=== PATIENT | female | born 1995 | race Caucasian/White ===

== ENCOUNTER → 2019-05-25 14:05 | Outpatient (CLI) | payer SELFPAY ==
[2019-05-05 09:17] VITALS: BMI 32.7
--- NOTE | 2019-05-25 14:08 | US_ITS ---
STUDY: SECOND AND THIRD TRIMESTER OBSTETRICAL ULTRASOUND REASON FOR EXAM: Female, 23 years old . dating. LMP: February 11, 2019 TECHNIQUE: Transabdominal and Transvaginal TECHNICAL QUALITY: Adequate. PRIOR ULTRASOUND: None. FINDINGS: There is a single intrauterine fetus. The fetus is in an transverse lie with the head on the maternal left side. There is demonstrated cardiac activity with a heart rate of 152 bpm. There is a normal amniotic fluid volume. The largest amniotic fluid pocket measures 4.8 cm x 3.1 cm. The amniotic fluid index (VALE) is normal. The placenta is anterior and low lying but not previa in location. The tip of the placenta is at 0.5 cm from the internal os. There are Grade 0 placental changes. The cervix measures 3.9 cm in length. The bilateral adnexal regions are normal. BIOMETRY: BPD: 2.7 cm: 14 weeks, 6 days HC: 10.5 cm: 50 weeks, 0 days AC: 8.4 cm: 14 weeks, 5 days FL: 1.4 cm: 14 weeks, 2 days CI: 78% FL/BPD: 53% FL/HC: FL/AC: 17% HC/AC: 1.25 age by current US: 14 weeks, 5 days. TOMÁS by current US: December 15, 2019. Estimated weight: 100 grams, +/- 15 grams, 24 %. Age by LMP: 14 weeks, 5 days. TOMÁS by LMP: November 18, 2019. US/OB Limited With Biometrics IMPRESSION: Single live intrauterine gestation with a mean gestational age of 14 weeks and 5 days. Low-lying anterior placenta. The tip of the placenta is at 0.5 cm from the internal os. Electronically Signed: Sekou Iqbal, at 12:51 EST , Service support ,
== END ==
PROVIDERS: Referring Provider Obstetrics & Gynecology; Visit Provider Obstetrics & Gynecology
DX: Z34.80 Encounter for supervision of other normal pregnancy, unspecified trimester (principal)
CPT/HCPCS: 76816; 76817; 87086

== ENCOUNTER → 2019-06-25 12:19 | Outpatient (CLI) | payer SELFPAY ==
[2019-05-25 15:49] VITALS: BMI 32.7
[2019-06-25 13:49] LABS: Absolute Lymphocyte Count 1.74 X10^3/uL (0.83-4.51); Absolute Neutrophil Count 5.3 X10^3/uL (2.0-7.7); Basophil# 0.02 X10^3/uL; Basophil% 0.3 % (0-1); Eosinophil# 0.05 X10^3/uL; Eosinophils% 0.7 % (0-5); Hematocrit 35.1 % (37-47); Hemoglobin 11.5 g/dL (12.0-15.0); Lymphocyte # 1.74 X10^3/ul (4.0); Mean Corp Hgb Conc 32.8 g/dL (32-36); Mean Corpuscular Hgb 29.9 pg (27.0-32.0); Mean Corpuscular Volume 91.4 fL (81-99); Mean Platelet Vol. 10.8 fl (6.2-12.0); Monocyte# 0.37 X10^3/uL; Monocyte% 4.9 % (0-10); NRBC Flagged by Analyzer 0 % (0-5); Neutrophil # 5.31 X10^3/uL (2.7-7.7); Neutrophil % 70.3 % (47-70); Platelet Count 216 K/mm3 (150-450); RBC Distribution Width CV 12.3 % (11.6-14.6); RBC Distribution Width SD 40.7 fl (35.1-43.9); Red Blood Count 3.84 M/mm3 (4.2-5.4); White Blood Count 7.6 K/mm3 (4.4-11.0)
[2019-06-25 14:26] LABS: Glucose Challenge Gest 1H 50g 88 mg/dL (70-140)
[2019-06-25 15:14] LABS: HIV - WCH Non-Reactive (Nonreactive); Hepatitis B Surface Antigen Non-Reactive (Nonreactive); Rubella IgG < 0.2 IU/mL
[2019-06-25 20:27] LABS: Chlamydia Trachomatis by PCR Negative (Negative); Neisserai gonorrhoeae by PCR Negative (Negative); Probe Check PASS; Sample Adequacy Control PASS; Specimen Processing Control PASS
[2019-07-02 02:55] LABS: Rapid Plasmin Reagin (RPR) NONREACTIVE (NONREACTIVE)
== END ==
PROVIDERS: Nurse Practitioner Women's Health; Referring Provider Obstetrics & Gynecology; Visit Provider Obstetrics & Gynecology
DX: Z34.80 Encounter for supervision of other normal pregnancy, unspecified trimester (principal)
CPT/HCPCS: 36415; 82950; 85025; 86592; 86703; 86762; 86850; 86900; 86901; 87340; 87491; 87591

== ENCOUNTER → 2019-07-03 11:56 | Outpatient (CLI) | payer SELFPAY ==
[2019-06-25 12:56] VITALS: BMI 32.7
--- NOTE | 2019-07-03 12:23 | US_ITS ---
STUDY: SECOND AND THIRD TRIMESTER OBSTETRICAL ULTRASOUND REASON FOR EXAM: Female, 23 years old. Anatomy screening. LMP: February 11, 2019 TECHNIQUE: Transabdominal and Transvaginal TECHNICAL QUALITY: Adequate. PRIOR ULTRASOUND: May 25, 2019. FINDINGS: There is a single intrauterine fetus. The fetus is in a transverse lie with the head on the maternal right side. There is demonstrated cardiac activity with a heart rate of 155 bpm. There is a normal amniotic fluid volume. The largest amniotic fluid pocket measures 4.34 cm. The placenta is anterior in location and is not low lying. There are Grade 0 placental changes. The cervix measures 4.4 cm in length. The adnexal regions are not visualized. BIOMETRY: BPD: 4.47 cm: 19 weeks, 3 days HC: 16.52 cm: 19 weeks, 1 days AC: 15.31 cm: 20 weeks, 3 days FL: 3.06 cm: 19 weeks, 3 days CI: 75.95 FL/BPD: 68.33 FL/HC: 18.5 FL/AC: 19.97 HC/AC: 1.08 age by current US: 19 weeks, 4 days. TOMÁS by current US: November 23, 2019. Estimated weight: 322 grams, +/- 48 grams, 21 %. age by prior US: 20 weeks, 2 days. TOMÁS by prior US: November 18, 2019. Age by LMP: 20 weeks, 2 days. TOMÁS by LMP: November 18, 2019. ANATOMY: Gender: Female Cranium: Normal lateral ventricles. Normal choroid plexus. Normal cerebellum. Normal cisterna magna. Normal face, nose and lips. Chest: Normal 4-chamber heart. Abdomen/Pelvis: Normal diaphragm. Normal stomach. Normal abdominal wall. Normal cord insertion. Normal 3 vessel cord. Normal kidneys. Normal bladder. Spine: Normal cervical spine. Normal thoracic spine. Normal lumbar spine. Normal sacrum. Extremities: Normal bilateral upper extremities. Normal bilateral lower extremities. IMPRESSION: 1. Live single intrauterine at 19 weeks, 4 days. TOMÁS is November 23, 2019. There is adequate interval growth since prior ultrasound. 2. EFW of 322 g. 3. Adequate amniotic fluid. 4. Anterior grade 0 placenta. 5. Transverse presentation with head to the maternal right. 6. No visualized anatomic abnormality. Electronically Signed: Murali Moffett DO at 18:01 EST Tel [phone], Service support , STUDY: SECOND AND THIRD TRIMESTER OBSTETRICAL ULTRASOUND REASON FOR EXAM: Female, 23 years old. Anatomy screening. LMP: February 11, 2019 TECHNIQUE: Transabdominal and Transvaginal TECHNICAL QUALITY: Adequate. PRIOR ULTRASOUND: May 25, 2019. FINDINGS: There is a single intrauterine fetus. The fetus is in a transverse lie with the head on the maternal right side. There is demonstrated cardiac activity with a heart rate of 155 bpm. There is a normal amniotic fluid volume. The largest amniotic fluid pocket measures 4.34 cm. The placenta is anterior in location and is not low lying. There are Grade 0 placental changes. The cervix measures 4.4 cm in length. The adnexal regions are not visualized. BIOMETRY: BPD: 4.47 cm: 19 weeks, 3 days HC: 16.52 cm: 19 weeks, 1 days AC: 15.31 cm: 20 weeks, 3 days FL: 3.06 cm: 19 weeks, 3 days CI: 75.95 FL/BPD: 68.33 FL/HC: 18.5 FL/AC: 19.97 HC/AC: 1.08 age by current US: 19 weeks, 4 days. TOMÁS by current US: November 23, 2019. Estimated weight: 322 grams, +/- 48 grams, 21 %. age by prior US: 20 weeks, 2 days. TOMÁS by prior US: November 18, 2019. Age by LMP: 20 weeks, 2 days. TOMÁS by LMP: November 18, 2019. ANATOMY: Gender: Female Cranium: Normal lateral ventricles. Normal choroid plexus. Normal cerebellum. Normal cisterna magna. Normal face, nose and lips. Chest: Normal 4-chamber heart. Abdomen/Pelvis: Normal diaphragm. Normal stomach. Normal abdominal wall. Normal cord insertion. Normal 3 vessel cord. Normal kidneys. Normal bladder. Spine: Normal cervical spine. Normal thoracic spine. Normal lumbar spine. Normal sacrum. Extremities: Normal bilateral upper extremities. Normal bilateral lower extremities. US/OB Anatomy Scan IMPRESSION: 1. Live single intrauterine at 19 weeks, 4 days. TOMÁS is November 23, 2019. There is adequate interval growth since prior ultrasound. 2. EFW of 322 g. 3. Adequate amniotic fluid. 4. Anterior grade 0 placenta. 5. Transverse presentation with head to the maternal right. 6. No visualized anatomic abnormality. Electronically Signed: Murali Moffett DO at 18:02 EST Tel [phone], Service support ,
== END ==
PROVIDERS: Referring Provider Obstetrics & Gynecology; Visit Provider Obstetrics & Gynecology
DX: O44.42 Low lying placenta NOS or without hemorrhage, second trimester (principal); Z3A.19 19 weeks gestation of pregnancy
CPT/HCPCS: 76805; 76817

== ENCOUNTER → 2019-09-17 09:38 | Outpatient (CLI) | payer SELFPAY ==
[2019-08-18 15:02] VITALS: BMI 32.7
[2019-09-17 10:24] LABS: Absolute Lymphocyte Count 1.45 X10^3/uL (0.83-4.51); Absolute Neutrophil Count 5.1 X10^3/uL (2.0-7.7); Basophil# 0.03 X10^3/uL; Basophil% 0.4 % (0-1); Eosinophil# 0.06 X10^3/uL; Eosinophils% 0.8 % (0-5); Hematocrit 34.5 % (37-47); Hemoglobin 11.5 g/dL (12.0-15.0); Lymphocyte # 1.45 X10^3/ul (4.0); Lymphocyte % 19.6 % (19-41); Mean Corp Hgb Conc 33.3 g/dL (32-36); Mean Corpuscular Hgb 30.6 pg (27.0-32.0); Mean Corpuscular Volume 91.8 fL (81-99); Mean Platelet Vol. 10.9 fl (6.2-12.0); Monocyte# 0.62 X10^3/uL; Monocyte% 8.4 % (0-10); NRBC Flagged by Analyzer 0 % (0-5); Platelet Count 179 K/mm3 (150-450); RBC Distribution Width CV 12.6 % (11.6-14.6); RBC Distribution Width SD 41.5 fl (35.1-43.9); Red Blood Count 3.76 M/mm3 (4.2-5.4); White Blood Count 7.4 K/mm3 (4.4-11.0)
[2019-09-17 11:00] LABS: Glucose Challenge Gest 1H 50g 78 mg/dL (70-140)
== END ==
PROVIDERS: Referring Provider Obstetrics & Gynecology; Visit Provider Obstetrics & Gynecology
DX: Z34.80 Encounter for supervision of other normal pregnancy, unspecified trimester (principal)
CPT/HCPCS: 36415; 82950; 85025

== ENCOUNTER → 2019-10-22 07:49 | Outpatient (CLI) | payer SELFPAY ==
[2019-10-15 10:12] VITALS: BMI 32.7
--- NOTE | 2019-10-22 07:50 | US_ITS ---
STUDY: SECOND AND THIRD TRIMESTER OBSTETRICAL ULTRASOUND REASON FOR EXAM: Female, 24 years old growth LMP: February 11, 2019. TECHNIQUE: Transabdominal TECHNICAL QUALITY: Adequate. PRIOR ULTRASOUND: Comparison is made with prior examination dated July 03, 2019. FINDINGS: There is a single intrauterine fetus. The fetus is in a breech presentation. There is demonstrated cardiac activity with a heart rate of 137 bpm. There is a normal amniotic fluid volume. The largest amniotic fluid pocket measures 8.4 cm. The amniotic fluid index (VALE) is 20.4 cm. The placenta is anterior in location and is not low lying. There are Grade 1 placental changes. The cervix measures 3.3 cm in length. The adnexal regions are not visualized. BIOMETRY: BPD: 9.2 cm: 37 weeks, 3 days HC: 33.4 cm: 38 weeks, 1 days AC: 35.4 cm: 39 weeks, 2 days FL: 7.1 cm: 36 weeks, 0 days CI: 82% FL/BPD: 76% FL/HC: FL/AC: 20% HC/AC: 0.94 age by current US: 37 weeks, 5 days. TOMÁS by current US: November 07, 2019. Estimated weight: 3453 grams, +/- 511 grams, 94% %. age by prior US: 36 weeks, 1 days. TOMÁS by prior US: November 18, 2019. Age by LMP: 36 weeks, 1 days. TOMÁS by LMP: November 18, 2019. US/OB Limited With Biometrics IMPRESSION: Single live intrauterine gestation with mean gestational age of 36 weeks and 1 day. The measurements obtained today fall within normal range. Electronically Signed: Sekou Iqbal, at 10:06 EDT , Service support ,
== END ==
PROVIDERS: Referring Provider Obstetrics & Gynecology; Visit Provider Obstetrics & Gynecology
DX: O26.843 Uterine size-date discrepancy, third trimester (principal); Z3A.36 36 weeks gestation of pregnancy
CPT/HCPCS: 76816; 87081

== ENCOUNTER → 2019-11-23 16:14 | Outpatient (CLI) | payer SELFPAY ==
[2019-11-19 10:05] VITALS: BMI 39.9
--- NOTE | 2019-11-23 16:14 | US_ITS ---
STUDY: SECOND AND THIRD TRIMESTER OBSTETRICAL ULTRASOUND REASON FOR EXAM: Female, 24 years old GROWTH - POST DUE DATE LMP: TECHNIQUE: Transabdominal TECHNICAL QUALITY: Adequate. PRIOR ULTRASOUND: None. FINDINGS: There is a single intrauterine fetus. The fetus is in a breech presentation. There is demonstrated cardiac activity with a heart rate of 136 bpm. There is a normal amniotic fluid volume. The largest amniotic fluid pocket measures 6.6 cm. The amniotic fluid index (VAEL) is 21 cm. The placenta is anterior There are Grade 2 placental changes.. BIOMETRY: BPD: 9.7 cm: 39 weeks, 4 days HC: 35 cm: 40 weeks, 5 days AC: 38.5 cm: weeks, days FL: 8 cm: 40 weeks, 5 days CI: 0.8 FL/BPD: 0.82 FL/HC: FL/AC: 0.21 HC/AC: 0.9 age by current US: 40 weeks, 3 days. TOMÁS by current US: November 20, 2019. Estimated weight: 4420 grams, +/- 645 grams, %. age by prior US: 42 weeks, 2 days. TOMÁS by prior US: November 07, 2019. Age by LMP: 40 weeks, 5 days. TOMÁS by LMP: November 18, 2019. ANATOMY: Not studied at this time US/OB Limited With Biometrics IMPRESSION: Viable intrauterine gestation approximately 40-41 weeks gestational age with fetus currently in breech position Electronically Signed: Gallito Lomax MD at 18:12 EDT , Service support ,
== END ==
PROVIDERS: Visit Provider Obstetrics & Gynecology
DX: O48.0 Post-term pregnancy (principal); Z3A.00 Weeks of gestation of pregnancy not specified
CPT/HCPCS: 76816

== ENCOUNTER 2019-11-25 07:54 | Inpatient (IN) | payer SELFPAY ==
[2019-05-05 09:17] VITALS: BMI 32.7
[2019-10-22 08:42] VITALS: BMI 32.7
[2019-11-05 10:10] VITALS: BMI 39.9
[2019-11-24 12:35] VITALS: BMI 39.9
[2019-11-25] VITALS (27 sets, daily range): BP systolic 95–135; BP diastolic 33–81; PULSE 78–123; RESP 16–20; TEMP 36.1–37.4; O2SAT 94–99; BMI 39.8
[2019-11-25 09:11] LABS: Absolute Lymphocyte Count 0.79 X10^3/uL (0.83-4.51); Absolute Neutrophil Count 11.8 X10^3/uL (2.0-7.7); Basophil# 0.02 X10^3/uL; Basophil% 0.1 % (0-1); Eosinophil# 0.09 X10^3/uL; Eosinophils% 0.7 % (0-5); Hemoglobin 12.3 g/dL (12.0-15.0); Lymphocyte # 0.79 X10^3/ul (4.0); Lymphocyte % 5.8 % (19-41); Mean Corp Hgb Conc 33.2 g/dL (32-36); Mean Corpuscular Hgb 30.2 pg (27.0-32.0); Mean Corpuscular Volume 90.9 fL (81-99); Mean Platelet Vol. 12.3 fl (6.2-12.0); Monocyte# 0.77 X10^3/uL; Monocyte% 5.7 % (0-10); NRBC Flagged by Analyzer 0 % (0-5); Neutrophil # 11.79 X10^3/uL (2.7-7.7); Neutrophil % 87.3 % (47-70); Platelet Count 161 K/mm3 (150-450); RBC Distribution Width SD 42.4 fl (35.1-43.9); Red Blood Count 4.07 M/mm3 (4.2-5.4); White Blood Count 13.5 K/mm3 (4.4-11.0)
--- NOTE | 2019-11-25 09:12 | PCM.HPOB.BLA ---
- Problem List (1) Active labor at term Status: Acute (2) H/O section Status: Acute Comment: x2 plan TOLAC prior to 41 weeks. 69% success. h/o AOD 3 cm. RLTCS scheduled at 41 weeks. (3) Obesity affecting Status: Acute Qualifiers: Comment: nl 1 tm glucola. encouraged healthy weight gain. (4) Post-dates Status: Acute Comment: OP Covid testing pending 11/23. plan IOL 11/26/19 if no spontaneous labor (5) Status: Acute Qualifiers: Comment: Declines genetic, carrier and NTD- normal anatomy (6) Supervision of other normal Status: Acute Comment: PRR TOMÁS 11/17/19 gender surprise PC: Patricia Knox Spouse: Patrick History and Physical Date of Admission: 11/25/19 Intake Vital Signs 11/24/19 BMI 39.9 11/24/19 Height 5 ft 2 in 11/24/19 Weight: 219 lb 11/24/19 BMI 40.0 11/24/19 BP 122/86 H Intake Visit Reasons: OB Chief Complaint: est ob 40w6d [employer] Required: No Is patient in pain?: No Allergies No Known Allergies Allergy (Verified 11/24/19 12:34) Medications vitamin no.76-iron,carbonyl 29 mg iron-folic acid 1 mg tablet 1 tab PO DAILY 05/05/19 [History Confirmed 11/24/19] Last Menstral Period: 02/11/19 Zika: Zika virus screening: Negative : No PFSH PFSH Medical History No significant past medical history (Acute) Surgical History H/O section (Acute) Social History (Updated 11/25/19 @ 07:[address] Jacqueline Amaral MD) adopted: No household members: family housing: house number of children: 2 current occupational status: other current occupation: homemaker pets and animals: No history of recent travel: No sexually active: Yes Smoking Status: Never smoker second hand exposure: No alcohol intake: never substance use type: does not use seatbelt use: always do you feel safe at home: Yes additional social history: Patrick- self employed landscaping Pregancy History 4 Elective abortions Hx Para 2 Spontaneous abortions 1 Hx # Term Pregnancies 2 Ectopic pregnancies Hx # Pregnancies Multiple births # of living children 2 Past Pregnancies Del. 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 AoD 3cm. Emergency Delivery Date: 11/05/16 On 05/05/19 @ 09:27 Christine Ramos Decreased FM HPI OB: Details: JEZ LYLE is a 24 year old @ 41 weeks presents IAL 4 cm dilated with regular contractions no significant vb or lof, good fm. OB Visit TOMÁS Calculator Estimated Delivery Date Method Current WG Current Estimate 11/18/19 LMP (Certain) 41w 0d Expected Delivery Route/Plan breech- plan RLTCS if vtx- attempt TOLAC patient counseled regarding risks/benefits of trial of labor versus repeat . ACOG and uptodate education given to patient. 69 % likelihood of success per calculator TOLAC consent form signed: yes Labor Preferences- labor support person: Patrick pain management options preferred: open to epidural but prefers minimal intervention cut cord/dad catch: cord : yes PP control planned: none discussed possible routes of delivery and associated risks: [] special requests: [] Specific Issue/Plans flu vaccine: declined tdap vaccine: declined rhogam: na LARC form signed: yes movement and labor precautions reviewed. Problem list reviewed and updated with the most current plan of care details and appropriate orders placed. Relevant counseling for the gestational age provided. Continue routine care and follow up unless otherwise noted in visit notes/problem list details Initial Weight: 179 lb Date EGA Weight BP Urine Prot Glucose FHR FuHt Pres Dilation Effaced St Visit Note 05/25/19 14w 5d 184 lb 6 oz (+5 lb 6 oz) 126/81 Negative Negative 150 no vb cramping 06/25/19 19w 1d 189 lb 8 oz (+10 lb 8 oz) 120/76 Negative Negative 158 No vB, LOF. PNL today with 1hr GCT. Anatomy US scheduled. 07/23/19 23w 1d 198 lb (+19 lb) 116/74 Negative Negative 150 SM- no vb lof good fm no regular ctx 08/18/19 26w 6d 204 lb (+25 lb) 128/82 154 27 MH-good FM. No VB, LOF. Declines tdap. Will RTO next week for 28wk labs 09/17/19 31w 1d 208 lb 8 oz (+29 lb 8 oz) 130/66 Negative Negative 145 32 SM- no vb lof good fm no regular ctx discussed reduced visit schedule due to covid 19. fu 4 weeks 10/15/19 35w 1d 216 lb (+37 lb) 120/80 Negative Negative 140 39 SM- no vb lof good fm no regular ctx. tolac consent signed 10/22/19 36w 1d 215 lb (+36 lb) 116/82 Negative Negative 140 40 Breech 0 SM- no vb lof good fm no regular ctx. discussed breech presentation. 10/29/19 37w 1d 218 lb 4 oz (+39 lb 4 oz) 130/80 Negative Negative 140 40 Cephalic SM- no vb lof good fm no regular ctx 11/05/19 38w 1d 219 lb (+40 lb) 130/86 Negative Negative 140 41 Cephalic 0 SM- no vb lof good fm no regular ctx, external os starting to open and soften but head still very high. discussed expectant management until 41 weeks. 11/12/19 39w 1d 221 lb (+42 lb) 128/78 Negative Negative 140 41 Cephalic 0.5 0 -4 SM- no vb lof good fm no regular ctx discussed scheduling 41 week delivery RLTCS if no active labor prior. questions answered. 11/19/19 40w 1d 222 lb 2 oz (+43 lb 2 oz) 122/82 Negative Negative 143 42 Cephalic MH-NO VB, LOF. Good FM. Declines internal exam. Plans CS 11/24 if no spontaneous labor. Aware covid test 03/24. 11/24/19 40w 6d 219 lb (+40 lb) 122/86 Negative Negative 130 Cephalic 3 70 -2 SM- no vb lof good fm irregular ctx. desires exp management and open to IOL at 41w1d if no spontaneous labor before then. dumont score 7 and favorable enough for induction with pitocin only. Discussed with the patient the decreased likelihood of success and due to being postdates and estimated weight is 4400 g patient wishes to proceed with trial of labor. Reactive NST and normal growth and fluid several days ago plan expectant management with induction of labor morning Notes Visit Date: 11/24/19 ??No visit notes to display Visit Date: 11/19/19 ??No visit notes to display Visit Date: 11/12/19 ??No visit notes to display Visit Date: 11/05/19 ??No visit notes to display Visit Date: 10/29/19 ??No visit notes to display Visit Date: 10/22/19 ??No visit notes to display Visit Date: 10/15/19 ??No visit notes to display Visit Date: 09/17/19 ??No visit notes to display Visit Date: 08/18/19 ??No visit notes to display Visit Date: 07/23/19 ??No visit notes to display Visit Date: 06/25/19 ??No visit notes to display Visit Date: 05/25/19 ??no vb cramping ??Jacqueline Amaral MD on 05/25/19 ACOG First Trimester First Trimester: Desire for , Alcohol, Tobacco Cessation, Illicit/Recreational Drug/Substance Use, Intimate Partner Violence, Barriers to care, Unstable Housing, Communication Barriers, Environmental/Work Hazards, Anticipated Course of Care, Toxoplasmosis Precations, Use of Any medications, Sexual activity, Exercise, Dental Care, Sauna/Hot tub use, Seat Belt use, Childbirth classes/Hospital facilities, , Travel, Indications for US and Screening for Aneuploidy Second Trimester Second Trimester: Signs and Symptoms of Labor, Selecting a care provider, Reproductive Life Planning, Care Planning, Tobacco Cessation, Depression/Anxiety and Intimate Partner Violence Third Trimester Third Trimester: Pain Management Plans, Labor support person(s), Immediate Larc, Movement Monitoring and Feeding Yes ; discussed Trial of Labor after Counseling or discussed Circumcision preference Diagnostics Diagnostics Diagnostics Glucose 1 Hr 50 gm 78 mg/dL (70-140) 09/17/19 Hgb 11.5 g/dL (12.0-15.0) L 09/17/19 Hct 34.5 % (37-47) L 09/17/19 Details: HIV: Urine Culture: Sequential Screen: NIPT Screen: ROS Const Reports system reviewed and no additional complaints, except as docu Card Reports system reviewed and no additional complaints, except as docu Resp Reports system reviewed and no additional complaints, except as docu GI Reports system reviewed and no additional complaints, except as docu, Reports nausea Reports system reviewed and no additional complaints, except as docu Musc Reports system reviewed and no additional complaints, except as docu Exam Const General: cooperative, healthy appearing, comfortable, anxious HENMT Head: normal to inspection Nose: external nose normal Face and sinus: normal facial exam Neck Neck: normal visual inspection, full ROM, no lymphadenopathy Thyroid: thyroid normal Chest Chest palpation & inspection: normal inspection of the chest Resp Effort & Inspection: normal respiratory effort GI Inspection: normal to inspection Palpation: soft, other (gravid uterus) Other: infant vertex and appropriate size for gestational age Other: Cervical Exam: Extrem General: pedal edema Office Procedures OB NST Non-Stress Test Indications for Monitoring: Yes post term 40+ Heart Rate Baseline: 130 Heart Rate Variability: moderate Movement: Present Heart Rate Accelerations: Present Decelerations: Absent Contractions: Absent Impression: Yes Reactive Non-Stress Test Category 1 Results POC Urinalysis 2 Dip (Clinic) Office Urine Glucose Negative Last Edit by Ebony Lemos on 11/24/19 12:38 Office Urine Protein Negative Last Edit by Ebony Lemos on 11/24/19 12:38 Assessment & Plan Problems 1. Obesity affecting in second trimester O99.212 2. H/O section Z98.891 3. Supervision of other normal Z34.80 4. 40 weeks gestation of Z3A.40 5. Post-dates O48.0 OP Covid testing pending 11/23. @ 41 weeks IAL for TOLAC prefers minimal intervention, open to epidural if needed. anesthesia consult gbs neg Orders Orders: POC Urinalysis 2 Dip (Clinic) 11/24/19 OB NST 11/24/19 O48.0 Coding Level of Care Code OB Routine Diagnoses Obesity affecting in second trimester O99.212 ??Trimester: second trimester H/O section Z98.891 Supervision of other normal Z34.80 40 weeks gestation of Z3A.40 ??Weeks of gestation: 40 weeks Post-dates O48.0 Additional Codes Non-Stress Test (83390)
[2019-11-25] MEDS: Oxytocin 30 units/NS 500 ml 30 UNITS/500 ML IV.SOLN IV (14:15)
[2019-11-25] MEDS: Lactated Ringers 1,000 ML 50 ML IV (14:15)
[2019-11-25] MEDS: Sodium Citrate/Citric Acid 30 ML UDC PO (15:46)
--- NOTE | 2019-11-25 15:55 | PN_ITS ---
Progress Note Patient was started on 4 milliunits of Pitocin due to no cervical change within 4 hours after rupture of membranes. After an hour of Pitocin and regular contractions she is still not made any cervical change and now she is requesting to proceed with a repeat she is declining a continued trial of labor. I discussed with her it is elective at this time to proceed with a repeat C- section however I suspect she was at a high risk for a failed anyways due to her labor progress today. Patient and her wish to proceed with repeat low transverse , questions answered. STROKE Vital Signs/Narrative: Vital Signs Temp Pulse BP Pulse Ox 11/25/19 15:34 100 125/76 H 11/25/19 15:32 99.4 F H 98 11/25/19 14:02 123 H 125/80 H 95 11/25/19 14:01 98.8 F 97 11/25/19 12:54 98.6 F 98 11/25/19 12:53 93 135/77 H 94
--- NOTE | 2019-11-25 15:57 | OP.PCM_ITS ---
Problem List (1) Active labor at term Status: Acute (2) H/O section Status: Acute Comment: x2 plan TOLAC prior to 41 weeks. 69% success. h/o AOD 3 cm. RLTCS scheduled at 41 weeks. (3) Obesity affecting Status: Acute Qualifiers: Comment: nl 1 tm glucola. encouraged healthy weight gain. (4) Post-dates Status: Acute Comment: OP Covid testing pending 11/23. plan IOL 11/26/19 if no spontaneous labor (5) Status: Acute Qualifiers: Comment: Declines genetic, carrier and NTD- normal anatomy (6) Supervision of other normal Status: Acute Comment: PRR TOMÁS 11/17/19 gender surprise PC: Leslee Knoxissa Spouse: Patrick Delivery Classification: QUAN Final TOMÁS: 11/17/19 Gestational age: 41 Weeks and 2 Days Type of Anesthesia:: Spinal Special Medications: none Implants Used: none Date of Procedure: 11/25/19 Pre-Operative Diagnosis: Patient declining to continue trial of labor after , suspected CPD Post-Operative Diagnosis: same Indications for : Repeat Elective Description of Procedure: Patient presented in active labor after anayeli at home for 4 to 5 hours regularly. She had made 1 cm of cervical change from 3 to 4 cm and was 41 weeks and 1 day. Patient had a likelihood of success of 69% per the calculator but a history of 2 previous C-sections, one for arrest of dilation at 4 cm and the other a repeat elective. Upon admission patient was 4 cm and membranes were ruptured for clear fluid. 4 hours later with regular contractions she had not made any cervical change and therefore Pitocin was started. An hour after Pitocin was started the patient had still not made any cervical change and at this point she electively decided to cease the trial of labor and wants to proceed with a repeat . Spinal anesthesia was placed without difficulty. Aquino catheter was placed. The patient was placed in the dorsal supine position with leftward tilt. Patient was prepped and draped in the normal sterile fashion. Pfannenstiel skin incision was made with the scalpel and carried through to the underlying layer of fascia with the scalpel. Fascia was nicked in the midline and the incision extended laterally. The rectus bellies were dissected off superiorly and inferiorly with out complication both sharply and bluntly. The peritoneum was entered digitally. The incision was stretched and a low transverse uterine incision was made with the scalpel. The infant's head was delivered atraumatically followed by the anterior and posterior shoulders without complication the rest of the infant delivered. The cord was clamped and cut and the was handed off to awaiting nurse. The placenta was delivered spontaneously immediately following and was noted to be intact and have a three-vessel cord. The uterus was exteriorized cleared of all clots and debris, and the incision was closed in a double layer closure using #1 Monocryl. The ovaries and fallopian tubes were noted to be within normal limits. The uterus was returned to the maternal abdomen and gutters were cleared of all clots and debris. The peritoneum was closed with 3-0 Monocryl in a running fashion. Gloves were changed prior to fascial closure. Fascia was closed with 0 PDS in a running fashion. Subcutaneous tissue was copiously irrigated and the skin was closed with 3-0 Monocryl in a subcuticular fashion. Mepilex dressing was applied without complication. Patient was taken to recovery in stable condition. It was discussed with the patient that based on the clinical information obtained during this encounter, combined with her history, at this time I would recommend cesareans for future deliveries if further pregnancies are desired. Amniotic Membrane Rupture Type: Artificial Amniotic Fluid Description: Clear Placenta Disposition: [facility] Drain: Aquino to straight drain Cord Entanglement: None Cord Vessel Description: 3 Vessels Esitmated Blood Loss (ml): 900 Infant Gender: Female Delayed cord clamping: Yes Antibiotic Given: Ancef 2 grams IV x1, Zithromax 500 mg/5 mL X1 Pt instructed on risks of surgery: Bleeding, Anesthesia Risks, Infection, Injury to surrounding structure(s) including bowel and bladder Complications: None - Admit VTE Documentation VTE Present on Admission: No VTE Mechan Device Prophylaxis: SCD's Multi Select Codes - Urinary/Genital Urinary/Genital CPT Codes: 70052 [facility]
[2019-11-25] MEDS: Cefazolin 2 GM in 0.9% Normal Saline 100 ML IV (16:10)
[2019-11-25] MEDS: Oxytocin 30 units/NS 500 ml 30 UNITS/500 ML IV.SOLN 167 UNITS IV (17:24)
--- NOTE | 2019-11-25 17:49 | NURSING ---
Golfball-sized clot expressed on fundal exam at this time.
[2019-11-25] MEDS: Lactated Ringers 1,000 ML 100 ML IV (19:00)
[2019-11-25] MEDS: Acetaminophen 500 MG Tablet 1000 MG PO (19:57)
[2019-11-25] MEDS: Ketorolac 30 MG/ML Syringe IV (23:04)
[2019-11-26] VITALS (12 sets, daily range): BP systolic 95–109; BP diastolic 57–67; PULSE 66–95; RESP 12–20; TEMP 36.2–36.6; O2SAT 97–100
[2019-11-26] MEDS: 0.9% Saline Lock 10 ML Syringe IV ×3 (01:13→16:55)
[2019-11-26] MEDS: Acetaminophen 500 MG Tablet 1000 MG PO ×3 (01:55→14:25)
[2019-11-26] MEDS: Ketorolac 30 MG/ML Syringe IV ×3 (05:03→16:55)
[2019-11-26 05:20] LABS: Hemoglobin 9.9 g/dL (12.0-15.0); Mean Corp Hgb Conc 31.9 g/dL (32-36); Mean Corpuscular Hgb 29.7 pg (27.0-32.0); Mean Corpuscular Volume 93.1 fL (81-99); Mean Platelet Vol. 11.6 fl (6.2-12.0); Platelet Count 138 K/mm3 (150-450); RBC Distribution Width CV 13.2 % (11.6-14.6); RBC Distribution Width SD 44.8 fl (35.1-43.9); Red Blood Count 3.33 M/mm3 (4.2-5.4); White Blood Count 14.6 K/mm3 (4.4-11.0)
[2019-11-26] MEDS: Enoxaparin 40 MG/0.4 ML Syringe SC (09:57)
--- NOTE | 2019-11-26 13:18 | PCM.PN.OB ---
Patient Problems: Active and Suspected Problems (Last Reviewed 11/24/19 @ 12:35 by Ebony Lemos) Active labor at term (Acute) Subjective: doing well no complaints pain controlled no CP SOB N V ambulating well tolerating po lochia moderate, going well - Physical Exam Vitals/I&O's: Vital Signs Temp Pulse Resp BP Pulse Ox 97.1 F L 84 16 109/63 99 11/26/19 12:27 11/26/19 12:27 11/26/19 12:27 11/26/19 12:27 11/26/19 12:27 Oxygen Delivery Method Room Air Weight: 217 lb 9.6 oz Body Mass Index (BMI) 39.8 Intake and Output for Last 24 Hours 11/24/19 11/25/19 11/26/19 23:59 23:59 23:59 Intake Total 4113.97 / 4113.97 1588.33 / 1588.33 Output Total 625 / 625 1150 / 1150 Balance 3488.97 / 3488.97 438.33 / 438.33 General: Alert, Oriented x3 Laboratory Results 11/24/19 12:20: COVID-19 ([facility]) Cancelled 11/26/19 05:10: WBC 14.6 H, RBC 3.33 L, Hgb 9.9 L, Hct 31.0 L, MCV 93.1, MCH 29.7, MCHC 31.9 L, RDW Std Deviation 44.8 H, RDW Coeff of Liana 13.2, Plt Count 138 L, MPV 11.6 Current Medications Acetaminophen (Tylenol) 1,000 mg PO Q6H [facility] Last Admin: 11/26/19 08:06 Dose: 1,000 mg Documented by: Bisacodyl (Dulcolax) 10 mg RECTAL UD PRN PRN Reason: If no BM Diphenhydramine HCl (Benadryl) 25 mg PO Q6H PRN PRN PRN Reason: ITCHING Stop: 11/26/19 17:33 Enoxaparin Sodium (Lovenox) 40 mg SC DAILY [facility] Last Admin: 11/26/19 09:57 Dose: 40 mg Documented by: Hydrocortisone (Hytone) 1 applic TOPICAL TID PRN PRN; Protocol PRN Reason: Discomfort Lactated Ringer's () 1,000 mls @ 100 mls/hr IV .Q10H [facility] Last Admin: 11/26/19 02:29 Dose: Not Given Documented by: Naloxone HCl 4 mg/ Dextrose 504 mls @ 0 mls/hr IV .Q0M PRN; Protocol PRN Reason: To maintain Resp. rate >10 Ketorolac Tromethamine (Toradol (Bkc)) 30 mg IV Q6H [facility] Stop: 11/26/19 17:01 Last Admin: 11/26/19 11:16 Dose: 30 mg Documented by: Methylergonovine Maleate (Methergine) 0.2 mg IM X1 PRN PRN Reason: Uterine Atony Nalbuphine HCl (Nubain) 5 mg IV Q3H PRN PRN PRN Reason: ITCHING Stop: 11/26/19 17:33 Naloxone HCl (Narcan) 0.02 mg IV Q1M PRN PRN Reason: RR <10 and pt unresponsive Naproxen (Naprosyn) 500 mg PO Q8 [facility] Last Admin: 11/26/19 05:12 Dose: Not Given Documented by: Ondansetron HCl (Zofran) 4 mg IV Q4H PRN PRN PRN Reason: Nausea Oxycodone HCl (Oxyir) 5 - 10 mg PO Q4H PRN PRN PRN Reason: Pain Score 4-10/10 Prochlorperazine Edisylate (Compazine Iv) 10 mg IV Q6H PRN PRN PRN Reason: NAUSEA Senna/Docusate Sodium (Senokot-S, Ana-Colace) 1 - 2 tablet PO DAILY [facility] Last Admin: 11/26/19 09:57 Dose: Not Given Documented by: Simethicone (Mylicon) 80 mg PO PCHS PRN PRN Reason: Indigestion/stomach pain Sodium Chloride () 5 - 15 ml IV UD PRN PRN Reason: SALINE FLUSH Last Admin: 11/26/19 11:16 Dose: 10 ml Documented by: Medical Necessity - Tobacco Use Smoking Status: Never smoker Assessment/Plan All Active Problems (Last Reviewed 11/24/19 @ 12:35 by Ebony Lemos) Active labor at term (Acute) Post-dates (Acute) Obesity affecting (Acute) H/O section (Acute) Supervision of other normal (Acute) (Acute) Breech presentation of fetus (Resolved) Low lying placenta nos or without hemorrhage, second trimester (Resolved) Miscarriage within last 12 months (Resolved) Uterine size date discrepancy (Resolved) s/p LTCS PPD # 1 1. routine post care 2. breast feeding- support given 3. rh positive 4. rubella immune
--- NOTE | 2019-11-26 13:19 | PCM.DCCSEC ---
Discharge Diet: No Restrictions Discharge Activity: May Not Drive - for 2 weeks, May not drive while taking narcotic pain medications., May Shower, May Take a Tub Bath - in 7 days May resume sexual activity in: 4-6 weeks Lifting Restrictions: 20 pounds Additional Activity Instructions:: Nothing in the vagina for 4-6 weeks. You may return to work/school in 6 weeks. Call your doctor if your incision/area has: Continuous Slow Oozing, Sudden Increased Bleeding, Increased Pain/ Swelling, Increased Redness, Foul Smelling Discharge Call your doctor if you observe: Fever of 101 or Higher, Using more than one pad per hour - for 2 hours Suture Line Care: Avoid Pulling/Pushing, Avoid Pinching/Bending Cleanse incision/area with: Keep Dressing Clean & Dry Additional Instructions: If you experience any of the following, contact your healthcare provider. Bleeding that soaks a pad every hour for 2 hours Fever 100.4 or higher Unrelieved incision or abdominal pain Swelling, redness, discharge or bleeding from your incision or episiotomy site Your incision begins to separate Problems urinating (including inability to urinate or burning while urinating). Visual changes Severe headache Flu-like symptoms Pain or redness in one of both of your breasts Pain, warmth, tenderness or swelling in your legs, especially the calf area Frequent nausea and vomiting Symptoms of depression or anxiety If you experience any of the following, call 911 or go to the nearest Emergency Room. Chest pain Problems breathing Seizure activity Partial or complete paralysis of a body part, slurred speech, weakness or drooping of the face, or a sudden inability to walk or hold your balance Allergies/Adverse Reactions: Allergies No Known Allergies Allergy (Verified 11/25/19 08:16) Medications to take at Discharge vitamin no.76-iron,carbonyl 29 mg iron-folic acid 1 mg tablet 1 tab PO DAILY 05/05/19 Naproxen [Naprosyn] 250 - 500 mg PO Q8H PRN PRN #30 tab 11/26/19 Oxycodone HCl/Acetaminophen [Percocet 5-325] 1 - 2 tablet PO Q6H PRN PRN 7 Days #28 tablet 11/26/19 The following prescriptions were given: Naproxen [Naprosyn] 250 - 500 mg PO Q8H PRN PRN #30 tab PRN Reason: MILD PAIN Transmission Status: Pending to [facility] Oxycodone HCl/Acetaminophen [Percocet 5-325] 1 - 2 tablet PO Q6H PRN PRN 7 Days #28 tablet PRN Reason: Moderate-Severe pain Transmission Status: Sent to [facility] Follow-Up: Call to make an appointment with your doctor for an incision check in 1-2 weeks. You will also need a 6 week post- follow up appointment. Test results from this visit will be discussed in further detail at your follow-up appointment, if applicable. Please Follow Up With: Jacqueline Amaral MD - Call to make an appointment for an incision check in 1-2 [phone] When: You will need a post- check in 6 weeks. Primary Care Physician: Care Physician,No Primary [Primary Care Provider] -
== END 2019-11-26 18:25 | disposition home or self-care (01) | DRG 788 ==
PROVIDERS: Admitting Provider Obstetrics & Gynecology; Referring Provider Obstetrics & Gynecology; Visit Provider Obstetrics & Gynecology
DX: O48.0 Post-term pregnancy (principal); O66.41 Failed attempted vaginal birth after previous cesarean delivery; O33.9 Maternal care for disproportion, unspecified; O34.211 Maternal care for low transverse scar from previous cesarean delivery; O99.214 Obesity complicating childbirth; E66.9 Obesity, unspecified; Z37.0 Single live birth; Z3A.41 41 weeks gestation of pregnancy
CPT/HCPCS: 59025; 59050; 76815; 85025; 85027; 86850; 86900; 86901; 87635; 99218; G2023; J7120; A4216; G0378; J2405; U0003

== ENCOUNTER → 2020-01-06 10:22 | Outpatient (CLI) | payer SELFPAY ==
[2020-01-06 10:19] VITALS: BMI 39.8
[2020-01-06 11:15] LABS: T4 Free Direct 0.99 ng/dL (0.76-1.46); Thyroid Stim Hormone (TSH) 0.51 uIU/mL (0.358-3.74)
== END ==
PROVIDERS: Referring Provider Obstetrics & Gynecology; Visit Provider Obstetrics & Gynecology
DX: E01.0 Iodine-deficiency related diffuse (endemic) goiter (principal)
CPT/HCPCS: 36415; 84439; 84443

== ENCOUNTER → 2021-11-29 | Outpatient (CLI) | payer SELFPAY ==
[2021-11-29 18:29] LABS: Amphetamine Urine VISTA NEGATIVE (<1000 ng/mL); Barbiturate Urine VISTA NEGATIVE (< 200 ng/mL); Benzodiazepine Urine VISTA NEGATIVE (< 200 ng/mL); Cocaine Urine VISTA NEGATIVE (< 300 ng/mL); Ecstacy Urine VISTA NEGATIVE (< 500 ng/mL); Methadone Urine VISTA NEGATIVE (< 300 ng/mL); PCP Urine VISTA NEGATIVE (< 25 ng/mL); THC Urine VISTA NEGATIVE (< 50 ng/mL); Vista UDS pH Range 5
[2021-12-02 13:07] LABS: Chlamydia By Nucleic Acid AMP Negative (Negative)
[2021-12-02 20:50] LABS: Gonococcus By Nucleic Acid AMP Negative (Negative)
[2021-12-06 12:19] LABS: HPV Reflexed? NOT INDICATED
== END | disposition home or self-care (01) ==
PROVIDERS: Visit Provider Obstetrics & Gynecology
DX: Z34.90 Encounter for supervision of normal pregnancy, unspecified, unspecified trimester (principal); Z12.4 Encounter for screening for malignant neoplasm of cervix
CPT/HCPCS: 80307; 87086; 87088; 87491; 87591; 88175; G0145